=== PATIENT | female | born 1990 | race Caucasian/White ===

== ENCOUNTER 2023-07-27 10:00 | Outpatient (CLI) | payer BC, SELFPAY ==
--- NOTE | 2023-07-27 10:15 | CRLHL7_ITS ---
For Patients: As a result of the Cures Act, medical imaging exams and procedure reports are released immediately into your electronic medical record. You may view this report before your referring provider. If you have questions, please contact your health care provider. INDICATION: First trimester scan, establish dates. COMPARISON: None. TECHNIQUE: Real-time macias-scale imaging of the pelvis was performed. FINDINGS: Sonographic imaging demonstrates a single living intrauterine gestation. The embryo demonstrates a regular cardiac rate measuring 176 beats per minute. The embryo`s crown-rump length measurement of 2.3 cm corresponds to a gestational age of 9 weeks 3 days with a sonographic due date of 02/29/2024. There is a normal-appearing yolk sac. There are no gross abnormalities noted within the embryo at this early state of development. The gestational sac has a normal appearance. There is a 1.7 x 0.6 x 2.0 cm perigestational hemorrhage. The amount of fluid within the sac appears appropriate for gestational age. The cervix is closed. The myometrium appears normal. The ovaries are of normal size. Simple left ovarian cyst measuring 2.9 x 2.1 x 2.6 cm. There are no suspicious fluid collections noted in the cul-de-sac. IMPRESSION: Single living intrauterine with sonographic gestational age 9 weeks 3 days and sonographic due date 02/29/2024. 1.7 x 0.6 x 2.0 cm subchorionic hemorrhage. Dictated by Kaden Flores MD @ 07/27/2023 11:52:38 AM (Electronically Signed)
== END 2023-07-27 10:01 | disposition home or self-care (01) ==
LOC: US 10:04
PROVIDERS: PCP Advanced Practice Midwife; Visit Provider Advanced Practice Midwife
DX: Z34.91 Encounter for supervision of normal pregnancy, unspecified, first trimester (principal); O20.9 Hemorrhage in early pregnancy, unspecified; Z3A.09 9 weeks gestation of pregnancy
CPT/HCPCS: 76817; 86592; 86703; 86704; 86706; 86762; 86787; 86803; 86850; 86900; 86901; 87086; 87340

== ENCOUNTER 2023-08-14 13:51 | Outpatient (CLI) | payer BC, SELFPAY ==
--- NOTE | 2023-08-14 14:00 | US_ITS ---
Final Report Patient: ALDAIR FISHMAN Facility:?[facility] Patient ID:?[id number] Site Patient ID:?[id number]. Site :?1990 Study:?US OB Pelvis OB TV-08/14/2023 2:43:36 PM Ordering Physician:?ANGÉLICA SALINAS Final Report: INDICATION: Bleeding in early . COMPARISON: OB ultrasound 07/27/2023. TECHNIQUE: Real-time macias-scale imaging of the pelvis was performed. FINDINGS: Sonographic imaging demonstrates a single living intrauterine gestation. The embryo has a regular cardiac rate measuring 169 beats per minute. The embryo`s crown-rump length measures 5.0 cm which corresponds to a gestational age of 11 weeks 5 days with sonographic due date 02/28/2024. There is a developing placenta. No evidence of a perigestational hemorrhage. The left ovary measures 4.6 x 3.3 x 3.8 cm and contains a corpus luteal cyst. The right ovary was not visualized. No free fluid in the pelvic cul-de-sac. IMPRESSION: 1. Single living intrauterine gestation corresponding to a gestational age of 11 weeks 5 days with sonographic due date 02/28/2024. 2. Resolution of the previously seen subchorionic hemorrhage. Dictated by Oksana Silverman MD @ 08/15/2023 3:38:35 AM (Electronic Signature)
== END 2023-08-14 13:52 | disposition home or self-care (01) ==
LOC: US 13:52
PROVIDERS: Visit Provider Advanced Practice Midwife
DX: O20.9 Hemorrhage in early pregnancy, unspecified (principal); Z3A.11 11 weeks gestation of pregnancy
CPT/HCPCS: 76817

== ENCOUNTER 2023-09-12 10:26 | Outpatient (CLI) | payer BC, MEDICAID, SELFPAY | END 2023-09-12 10:27 | disposition home or self-care (01) | PROVIDERS: Visit Provider Advanced Practice Midwife | DX: R33.9 Retention of urine, unspecified (principal) | CPT/HCPCS: 87086 ==

== ENCOUNTER 2023-10-17 12:50 | Outpatient (CLI) | payer BC, MEDICAID, SELFPAY ==
--- NOTE | 2023-10-17 13:00 | US_ITS ---
Patient: ALDAIR FISHMAN Facility:?[facility] Patient ID:?[id number] Site Patient ID:?[id number]. Site :?1990 Study:?US-OB Pelvis anatomy-10/17/2023 2:20:45 PM Ordering Physician:Ashlie Burgos Final Report: INDICATION: Evaluate anatomy. COMPARISON: 08/14/2023 TECHNIQUE: Real time macias scale imaging of the fetus was performed as well as color Doppler analysis of the umbilical vessels. FINDINGS: Sonographic imaging demonstrates a single living intrauterine gestation. Fetus demonstrates a regular cardiac rate of 152 beats per minute. Fetus has a breech position. The placenta lies anteriorly without evidence of placenta previa. Placental edge 8.2 cm from the internal cervical os. Amniotic fluid volume appears normal. Single deepest vertical pocket: 4.5 cm. The cervix is closed and measures 3.8 cm in length. The composite ultrasound gestational age is calculated at 20 weeks 5 days with an estimated sonographic due date of 02/29/2024. The estimated weight is 383 grams which lies at the 62nd %. The following biometric measurements were obtained: Biparietal diameter: 4.7 cm/20 weeks 1 day 32nd% Head circumference: 17.7 cm/20 weeks 1 day 25th% Abdominal circumference: 16.1 cm/21 weeks 1 day 64th% Femur length: 3.4 cm/20 weeks 5 days 48th% The HC/AC ratio measures: 1.10 range (1.06-1.25) On anatomic survey, there is a normal appearance of the cerebral ventricles, cavum septi pellucidi, cisterna magna and cerebellum. The nose, lips, and facial profile appear normal. The cervical, thoracic and lumbar spine are well visualized and appear normal. There is a normal four-chamber heart view and the left and right ventricular outflow tracts appear normal. The diaphragm and stomach appear normal. The kidneys and bladder also appear normal. There is a normal three-vessel cord and cord insertion site. The four extremities appear normal. IMPRESSION: Normal OB ultrasound exam with concordance of clinical and sonographic dating. No intrinsic abnormalities noted on anatomic survey. Dictated by Kaden Flores MD @ 10/18/2023 8:54:18 AM Signed by:?Kaden Flores MD @10/18/2023 8:54:18 AM (Electronic Signature)
== END 2023-10-17 12:51 | disposition home or self-care (01) ==
LOC: US 12:53
PROVIDERS: Visit Provider Advanced Practice Midwife
DX: Z34.92 Encounter for supervision of normal pregnancy, unspecified, second trimester (principal); Z3A.20 20 weeks gestation of pregnancy
CPT/HCPCS: 76805

== ENCOUNTER 2023-12-05 09:25 | Outpatient (CLI) | payer BC, MEDICAID, SELFPAY | END 2023-12-05 09:26 | disposition home or self-care (01) | LOC: NFLDREF 12-09 15:38 | PROVIDERS: Visit Provider Registered Nurse | DX: Z34.92 Encounter for supervision of normal pregnancy, unspecified, second trimester (principal); Z3A.27 27 weeks gestation of pregnancy | CPT/HCPCS: 86592 ==

== ENCOUNTER 2024-02-06 09:36 | Outpatient (CLI) | payer BC, MEDICAID, SELFPAY | END 2024-02-06 09:37 | disposition home or self-care (01) | LOC: NFLDREF 02-08 10:33 | PROVIDERS: PCP Physician Assistant; Visit Provider Advanced Practice Midwife | DX: Z34.93 Encounter for supervision of normal pregnancy, unspecified, third trimester (principal); F41.9 Anxiety disorder, unspecified; F34.1 Dysthymic disorder; Z3A.36 36 weeks gestation of pregnancy | CPT/HCPCS: 87081; 87653 ==

== ENCOUNTER 2024-03-03 06:41 | Inpatient (IN) | payer BC, MEDICAID, SELFPAY ==
[2024-03-03] VITALS (30 sets, daily range): BP systolic 90–150; BP diastolic 48–92; PULSE 62–98; RESP 15–18; TEMP 36.8–37.1; O2SAT 89–99; BMI 32.8
[2024-03-03] MEDS: LACTATED RINGERS 1000 ML 1,000 ML IV (06:45)
[2024-03-03 06:56] LABS: Basophils Percent Auto 0.3 % (0.0-3.0); Eosinophils Percent Auto 0.6 % (0.0-7.0); Hematocrit 41.6 % (33.0-51.0); Hemoglobin* 14.3 gm/dL (12.0-16.0); Lymphocytes Percent Auto 20.8 % (20-44); Mean Corpuscular HGB Conc 34 gm/dL (32-36); Mean Corpuscular Hemoglobin 32 pg (26-34); Mean Corpuscular Volume 94 fL (80-100); Monocytes Percent Auto 6.2 % (0.0-11.0); Neutrophils Percent Auto 71.1 % (42.0-72.0); Platelet Count* 164 K/uL (140-440); RDW Coefficient of Variation % 12.2 % (11.5-15.5); Red Blood Count 4.41 m/uL (4.00-5.20); White Blood Count* 12.52 K/uL (4.50-11.00)
[2024-03-03 06:59] LABS: Slide Review Reflex No
[2024-03-03] MEDS: fentaNYL 100 MCG/2 ML inj 25 MCG INTRATHECA (07:05)
--- NOTE | 2024-03-03 07:13 | P.ANBPRC_ITS ---
[facility] Medical History Avulsion of umbilical cord ?P02.69 - affected by other conditions of umbilical cord (ICD-10) Vaginal delivery ?O80 - Encounter for full-term uncomplicated delivery (ICD-10) Spontaneous (2016) ?O03.9 - Complete or unspecified spontaneous without complication (ICD-10) Gestational hypertension without significant proteinuria, (2017) ?O13.5 - Gestational [-induced] hypertension without significant proteinuria, complicating the puerperium (ICD-10) Surgical History H/O wisdom tooth extraction ?K08.409 - Partial loss of teeth, unspecified cause, unspecified class (ICD- 10) Family History Brother Colitis Paternal Grandfather Colon cancer Maternal Grandfather Heart disease Social History Narrative: SOCIAL Education: masters - human services/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 Partner present, unable to assess current Special Diet: gluten free diet - glucose intolerance Ok with a blood transfusion: yes Culture or worship beliefs: denies RISK FACTORS Exercise Times/wk: beach body 3 times a week Depression/Anxiety: anxiety and depression. On sertraline, recently increase to 75mg at the end of May and feeling good on this dose. Denies concerns with current HARRIET of 10 and feels that it is normal concerns. HARRIET: 10 PHQ 9: 2 Seat Belt Use: Routinely Smoking: Denies past/present Alcohol/day: Denies while Caffeine: 1 per week Drug Use: Denies past/present Chicken Pox: Yes as a child MRSA: Denies What is your current living situation?: I presently have a place to live Problems where you live: no known problems In the past 12 months, utilities in danger of being shut off: no In past 12 months, lack of transportation kept you from medical appts, meetings, work, or getting things needed for daily living: no In the past 12 mos, have been you worried that your food would run out before you had money to buy more?: never true In the past 12 mos, the food you bought just didn't last and you didn't have money to buy more?: never true How often does anyone, including family, friends and others, physically hurt you : never How often does anyone, including family, friends and others, insult or talk down to you: never How often does anyone, including family, friends and others, threaten you with harm: never How often does anyone, including family, friends and others, scream or curse at you: never Little interest or pleasure in doing things: not at all Feeling down, depressed, or hopeless: several days Meds Home Medications and Allergies Home Medications ?Medication ?Instructions ?Recorded ?Confirmed ?Type vits no.126-ferrous fum tab PO DAILY 07/27/23 02/27/24 History 28 mg iron-folic acid 800 mcg tablet (Classic ) sertraline 50 mg tablet 75 mg PO QDAY 09/12/23 02/27/24 History aspirin 81 mg tablet,delayed 81 mg PO QDAY 10/17/23 02/27/24 History release (Adult Low Dose Aspirin) magnesium citrate 100 mg capsule 100 mg PO QDAY 02/06/24 02/27/24 History Allergies Allergy/AdvReac Type Severity Reaction Status Date / Time No Known Drug Allergies Allergy Verified 02/27/24 13:50 Results Labs Labs: Laboratory Results - last 24 hr 03/03/24 06:41 WBC 12.52 H RBC 4.41 Hgb 14.3 Hct 41.6 MCV 94 MCH 32 MCHC 34 RDW Coeff of Rafa 12.2 Plt Count 164 Neut % (Auto) 71.1 Lymph % (Auto) 20.8 Dukes % (Auto) 6.2 Eos % (Auto) 0.6 Baso % (Auto) 0.3 Neut # (Auto) 8.90 H Lymph # (Auto) 2.60 Dukes # (Auto) 0.80 Eos # (Auto) 0.10 Baso # (Auto) 0.00 Abs Immat Gran (auto) 0.10 Imm/Tot Granulo (auto) 1.0 Vital Signs Vital Signs: Last Vital Signs Pulse 94 03/03/24 07:13 BP 111/56 L 03/03/24 07:13 Pulse Ox 89 03/03/24 07:12 Anesthesia Procedures Intrathecal Patient Location: OB Start Time: 07:00 Stop Time: 07:05 Start Date: 03/03/24 Stop Date: 03/03/24 Reason for Block: procedure for pain Patient Position: sitting Performed By: Juvenal Skinner Preanesthetic Checklist: IV checked, risks and benefits discussed, monitors and equipment checked, pre-op evaluation, timeout performed and anesthesia consent Prep: chlorhexidine gluconate Monitoring: blood pressure monitoring, continuous pulse oximetry and heart rate Approach: midline Vertebral Space: lumbar (1-5) Needle Type: Pencan Injection Technique: single-shot Needle gauge: 25 Needle Length (cm): 10 cm
--- NOTE | 2024-03-03 07:19 | P.LDBA_ITS ---
Subjective History of Present Illness Date Seen: 03/03/24 Narrative: Oumou is being admitted to Labor and Delivery for active labor. She is a 33 year old at 40.2 weeks gestation. Her full history and physical was dictated by Brit Dunham CNM on 02/11/24. Please see this for details. She woke up with contractions around 0500 this am and they quickly increased in frequency and intensity. she presented to the unit around 0630 and was found to be 6- 7cm/80%/0 station per RN exam. She requested epidural analgesia after that. She denies any leaking fluids or bleeding but did feel that she lost my mucus plug right before leaving their house. She is appreciating good movement. When sitting up for analgesia she did note leaking of fluid that appeared clear from what was visible at that time. Specific Issues/Plans Partner: Kilo H&P completed 02/11/24 by Faraz VALLADARES 1. Hx gestation HTN after first delivery. Taking ASA 2. Anxiety and depression. On Sertraline 50mg and sees a therapist. 3. Hx cord evulsion and manual removal of placenta with 2nd delivery. 4. Vaginal bleeding with cramping at 11.3 weeks. US normal, previous ELIE resolved. COVID: 2 vaccines in 2020, not boosted Flu: declined TDAP: given 01/08/24 OB - Problem Based A/P Additional Plan (1) Pain during labor: Status: Acute (2) Anxiety: Status: Chronic (3) Depression: Status: Chronic Plan ASSESSMENT: ? 27 at 38.5 weeks gestation ? complicated by: history of gestational hypertension (blood pressures stable in this ), anxiety and depression (on sertraline), history of cord evulsion? Labor type: Spontaneous labor ? Reactive FHR tracing ? Labor complicated by: none ? GBS negative ? ? PLAN: ? 1. Routine intrapartum cares as ordered. Continue with expectant management ? 2. Monitoring continuous after intrathecal placement.? 3. Candidate for analgesia of choice. Requested analgesia placement at this time.? 4. Patient encouraged to reposition and ambulate with assistance to promote physiologic labor and . ? 5. Anticipate ??? Delivery/Labor/Induction Plan Plan: expectant management OB Result Labs Blood Type: O (+) positive GBS Status: negative OB Exam Physical Exam Vital signs: Pulse BP Pulse Ox 73 94/55 L 99 03/03/24 07:18 03/03/24 07:18 03/03/24 07:15 Narrative: Psychiatric:? Alert and oriented x3? HEENT:? Normocephalic, atraumatic? Neck:? Supple without adenopathy or thyromegaly? Lungs:? Clear to auscultation bilaterally? Heart:? Regular rate and rhythm, no murmur, rub or gallop? Abdomen:? Soft, nontender, and gravid? Extremities:? No edema or erythema? Detailed Labor and Delivery Exam Patient Gravid: Yes Dilation (cm): 7 Effacement (%): 80 Contraction intensity: Strong/Firm Fetus (Single) Station: 0 Amniotic Membrane Status: SROM Amniotic Membrane Fluid Description: Clear Heart Rate Baseline: 135 Monitor Accelerations: Present Monitor Decelerations: None Electrician Assistant Variability: Moderate (6-25)
[2024-03-03] MEDS: OXYTOCIN 30 unit/500 ML in NS 30 UNIT/500 ML BAG 300 UNIT IVPB (07:24)
--- NOTE | 2024-03-03 07:41 | W.PM.OBVAGDE ---
OB Procedure Vag Delivery Mother Details Mother Details: The patient is a 33 year-old, 4, now Para 3, admitted on 03/03/24 at 40w 2 Days gestation. Admission Date: 03/03/24 Additional Details Amniotic Membrane Status: SROM (then 2nd SROM of forebag with mec stained fluid) Amniotic Membrane Rupture Date: 03/03/24 Amniotic Membrane Rupture Time: 07:16 Amniotic Membrane Fluid Description: Meconium Stained (moderate, no particulate) Analgesia/Anesthesia Type: Spinal Waterbirth: No Intrapartal Events: Precipitous Labor <3 Hrs Labor Onset: 05:00 Complete: 07:16 Pushin:16 Heart: heart tones during second stage were category 2, with prolonged decel audible with imminent . Tj hastened with encouragement for Oumou to push him out. Delivery Details Delivery Date: 03/03/24 Delivery Time: 07:22 Route of delivery: Infant Gender: Male Infant Viability: Alive; Heart Rate Present Position at Delivery: OA Delivery Details: Patient was admitted for active labor at 7 cm and progressed normally/with quickly. We were able to get the spinal in just prior to . AROM noted at 0716 with moderate mec fluid. Peds called to . Patient was complete at 0716 and pushing at 0716. of a viable male at 0722 in right tilt semifowler's. Vertex delivered OA. One loose nuchal cord reduced. Shoulders delivered easily. Body delivered easily and without incident. I supported the head, reduced the cord then assisted Kilo in the of his son. passed to mothers abdomen with an intermittent cry, but excellent tone. Cord was clamped and cut at approx 5 minutes with signs of placental seperation. APGARS were 8 at one minute and 9 at five minutes respectively. Mouth was bulb suctioned. Intact placenta with a 3 vessel cord delivered spontaneously at 0728. Fundus firm. 1st degree identified only right inside the introitus, which was hemostatic and not repaired. QBL 150 cc. Mother and baby stable; mother plans to breastfeed. Infant weight pending.? 1 Minute Interval Total Score: 8 5 Minute Interval Total Score: 9 Additional Details Shoulder Dystocia: No Placenta Delivery Time: 07:28 Placental Delivery Description: Spontaneous Procedure Done: Global Blood Loss: 150 Laceration: Perineal - 1st Degree Blood Loss Measurement Type: QBL Bakri Used: No Sponge/Need Count Correct: Yes Cord Vessel Description: 3 Vessels, Loose and Reduced Event Summary Status: Mother and were stable after delivery. Disposition: floor
[2024-03-03] MEDS: IBUPROFEN 600 MG TABLET PO ×3 (09:10→21:07)
[2024-03-03] MEDS: ONDANSETRON 2 MG/ML inj 4 MG IV (10:21)
[2024-03-03] MEDS: LACTATED RINGERS 1000 ML 500 ML IV (10:59)
[2024-03-03] MEDS: LANOLIN CREAM 1 APPLIC TOPICAL (14:55)
[2024-03-03] MEDS: ONDANSETRON 2 MG/ML inj 4 MG IVP (16:34)
[2024-03-03 16:46] LABS: Basophils Percent Auto 0.3 % (0.0-3.0); Eosinophils Percent Auto 0.1 % (0.0-7.0); Hematocrit 37.5 % (33.0-51.0); Immature Granulocytes Pct Auto 0.5 %; Lymphocytes Percent Auto 10.9 % (20-44); Mean Corpuscular HGB Conc 35 gm/dL (32-36); Mean Corpuscular Hemoglobin 33 pg (26-34); Mean Corpuscular Volume 95 fL (80-100); Monocytes Percent Auto 5.5 % (0.0-11.0); Neutrophils Percent Auto 82.7 % (42.0-72.0); Platelet Count* 157 K/uL (140-440); RDW Coefficient of Variation % 12.1 % (11.5-15.5); Red Blood Count 3.96 m/uL (4.00-5.20); Slide Review Reflex No; White Blood Count* 14.53 K/uL (4.50-11.00)
[2024-03-03 17:51] LABS: Chloride* 105 mmol/L (96-114)
[2024-03-03 17:52] LABS: Albumin* 3.3 g/dL (3.3-5.0); Potassium* 3.8 mmol/L (3.6-5.1); Sodium* 134 mmol/L (135-149)
[2024-03-03 17:55] LABS: Alanine Aminotransferase* 19 U/L (4-35); Alkaline Phosphatase* 154 U/L (40-150); Anion Gap 3 mEq/L (7-15); Aspartate Amino Transferase* 39 U/L (12-35); Bilirubin Total* 0.5 mg/dL (0.1-1.5); Blood Urea Nitrogen* 6 mg/dL (5-24); Calcium* 8.7 mg/dL (8.4-10.6); Carbon Dioxide* 26 mmol/L (20-32); Creatinine* 0.6 mg/dL (0.5-1.5); Est. Creatinine Clearance* 115.16; Estimated Glomerular Filt Rate 121 ml/min; Glucose* 102 mg/dL (60-115)
[2024-03-03] MEDS: hydrOXYzine pamoate 25 MG CAPSULE 100 MG PO (22:47)
--- NOTE | 2024-03-03 23:03 | P.OBPN_ITS ---
OB - PN:Subj Subjective Date Seen: 03/03/24 Narrative: Oumou has had 2 bouts of vomiting today that were treated with zofran with relief. CBC, CMP and electrolyte panel checked with no concerning findings. Pt does have significant anxiety and feels this is the cause for her. Reassurance given by nursing. Bleeding is unremarkable. She has no fever or significant pain. She is supported by her partner. OB - PN: Obj Exam Physical Exam: Vital signs: Temp Pulse Resp BP Pulse Ox O2 Del Method 98.7 F 62 18 150/92 H 97 Room Air 03/03/24 20:50 03/03/24 20:50 03/03/24 20:50 03/03/24 20:50 03/03/24 20:50 03/03/24 20:50 Narrative: Reflexes =2/4 and neg clonus by bilateral lower extremities. One elevated BP noted. Labs WNL OB - PN: Obj Data Labs Labs: Laboratory Results - last 24 hr 03/03/24 03/03/24 06:41 16:39 WBC 12.52 H 14.53 H RBC 4.41 3.96 L Hgb 14.3 13.0 Hct 41.6 37.5 MCV 94 95 MCH 32 33 MCHC 34 35 RDW Coeff of Rafa 12.2 12.1 Plt Count 164 157 Neut % (Auto) 71.1 82.7 H Lymph % (Auto) 20.8 10.9 L [facility] % (Auto) 6.2 5.5 Eos % (Auto) 0.6 0.1 Baso % (Auto) 0.3 0.3 Neut # (Auto) 8.90 H 12.00 H Lymph # (Auto) 2.60 1.60 [facility] # (Auto) 0.80 0.80 Eos # (Auto) 0.10 0.00 Baso # (Auto) 0.00 0.00 Abs Immat Gran (auto) 0.10 0.10 Imm/Tot Granulo (auto) 1.0 0.5 Sodium 134 L Potassium 3.8 Chloride 105 Carbon Dioxide 26 Anion Gap 3 L BUN 6 Creatinine 0.6 Estimated Creat Clear 115.16 Estimated GFR 121 Glucose 102 Calcium 8.7 Total Bilirubin 0.5 AST 39 H ALT 19 Alkaline Phosphatase 154 H Total Protein 6.0 Albumin 3.3 Blood Type O Positive Antibody Screen NEGATIVE OB - PN: A/P Delivery Assessment and Plan (1) Anxiety: Status: Chronic (2) care and examination of lactating mother: Status: Acute Plan day: 0 Plan: routine care Comments: Routine PP care Anxiety-offered vistaril to help calm her anxiety and help with sleep. She agrees with plan.
[2024-03-04 00:28] VITALS: BP 121/77; PULSE 78; RESP 16; TEMP 36.7; O2SAT 97
[2024-03-04 02:57] VITALS: BP 124/79; PULSE 76; RESP 16; TEMP 37.2; O2SAT 97
[2024-03-04] MEDS: IBUPROFEN 600 MG TABLET PO ×2 (03:03→09:14)
[2024-03-04 06:24] LABS: Hemoglobin* 12.5 gm/dL (12.0-16.0)
--- NOTE | 2024-03-04 08:04 | PM.ANPOST ---
Post Anesthesia Note Post Anesthesia Note Patient seen: Inpatient Respiratory Status: adequate Cardiovascular Status: adequate Mental Status: baseline Pain: adequate Temp: baseline Anesthetic awareness: N/A Complications: none Follow care: none
--- NOTE | 2024-03-04 08:08 | PM.OBDSVD1 ---
DS: Providers Provider Date Seen: 03/04/24 Date of admission: 03/03/24 06:41 Primary care physician: ANH White Admitting Clinician: Shanti Jiménez CNM Attending Physician on discharge: Shanti Jiménez CNM Date of Discharge: 03/04/24 Exam Narrative: Exam Narrative: GENERAL APPEARANCE:? normal affect, alert, no distress? MOOD:? appropriate? CHEST:? clear to auscultation and percussion? HEART:? regular rate and rhythm? ABDOMEN:? soft, non-tender the uterine fundus is [] and is appropriate for the stage of recovery. Incision [].? PERINEUM:? mild edema of the perineum, there is a [] that is healing well.? EXTREMITIES:? normal and no edema? Const: Vital Signs, click to edit/add: Vital Signs - 24 hr 03/03/24 08:15 03/03/24 08:22 03/03/24 08:22 Temperature 98.5 F Pulse Rate 71 74 Pulse Rate [Pulse Oximeter] Respiratory Rate 16 Blood Pressure 149/60 H 131/60 Blood Pressure [Le ft Arm] Blood Pressure [Ri ght Arm] Pulse Oximetry Oxygen Delivery Me thod 03/03/24 08:29 03/03/24 08:44 03/03/24 09:00 Temperature Pulse Rate 64 69 72 Pulse Rate [Pulse Oximeter] Respiratory Rate Blood Pressure 112/56 L 133/65 132/59 L Blood Pressure [Le ft Arm] Blood Pressure [Ri ght Arm] Pulse Oximetry Oxygen Delivery Me thod 03/03/24 09:00 03/03/24 09:14 03/03/24 09:29 Temperature Pulse Rate 73 67 Pulse Rate [Pulse Oximeter] Respiratory Rate 16 Blood Pressure 124/57 L 115/60 Blood Pressure [Le ft Arm] Blood Pressure [Ri ght Arm] Pulse Oximetry Oxygen Delivery Me thod 03/03/24 09:30 03/03/24 10:03 03/03/24 10:34 Temperature 98.2 F Pulse Rate 91 Pulse Rate [Pulse Oximeter] Respiratory Rate 15 15 Blood Pressure 124/69 Blood Pressure [Le ft Arm] 142/85 H Blood Pressure [Ri ght Arm] Pulse Oximetry 98 Oxygen Delivery Me thod Room Air 03/03/24 10:39 03/03/24 12:24 03/03/24 16:30 Temperature 98.4 F 98.6 F Pulse Rate Pulse Rate [Pulse Oximeter] 76 72 72 Respiratory Rate 15 16 Blood Pressure Blood Pressure [Le ft Arm] 134/80 124/76 Blood Pressure [Ri ght Arm] 136/80 Pulse Oximetry 99 95 98 Oxygen Delivery Me thod Room Air Room Air Room Air 03/03/24 20:50 03/04/24 00:28 03/04/24 02:57 Temperature 98.7 F 98.1 F 98.9 F Pulse Rate Pulse Rate [Pulse Oximeter] 62 78 76 Respiratory Rate 18 16 16 Blood Pressure Blood Pressure [Le ft Arm] 124/79 Blood Pressure [Ri ght Arm] 150/92 H 121/77 Pulse Oximetry 97 97 97 Oxygen Delivery Me thod Room Air Room Air Room Air OB - DS: Summary Hospital Course Hospital Course: Oumou is a 33 year old G 4 P 3 at 40.2 weeks gestation that was admitted to the Center on 03/03/24 for active labor. She had an uncomplicated vaginal delivery. She delivered a viable male . She is breast feeding and feels that baby is feeding well but latch is getting shallow. Encouraged her to see before discharge. the patient has done well. Her pain is well controlled with current medications.? She has no new complaints.? Urinary output is adequate and she is voiding without difficulty.? Has a good appetite, is tolerating a general diet, is passing flatus, and has had a bowel movement.? Has small amount of rubra lochia.? She is ambulating well. She is planning condoms or a diaphragm for contraception until her partner gets a vasectomy. She had a couple of bouts of vomiting overnight that she feels was due to anxiety. She denies nausea since that time. She is requesting a Zofran prescription for if it occurs again until she can be evaluated. Encouraged her to seek care with concerns for anxiety or depression. Will plan for a 1 week mood check in addition to the 2 week PP check due to a significant history and concerns from her and her partner. Peripartum Data Infant delivery method: Vaginal Laceration description: Perineal - 1st Degree Episiotomy description: None complications: none Infant Gender: Male Discharge Plan: Home Status at Discharge Functional status at discharge: independent ambulation Overall status at discharge: patient is progressing back to baseline Time Spent with Patient Time attestation: Total time spent providing and/or coordinating discharge services: Discharge Plan Discharge Disposition: Home, Self-Care Date of Admission: 03/03/24 06:41 Attending Provider on Discharge: Shanti Jiménez Primary Care Provider: Celi Cole Condition: Stable Anticipated Discharge Date/Time: 03/04/24 15:00 Discharge Medications: New docusate sodium 100 mg Capsule 100 mg PO DAILY Qty: 100 0RF Rx Instructions: Take 1-2 tablets daily as needed for constipation. ibuprofen 600 mg Tablet 600 mg PO Q6H PRNQty: 60 0RF ondansetron HCl 4 mg tablet 4 mg PO Q8H PRN (Reason: nausea and vomiting) Qty: 7 0RF Continued Classic 28 mg iron- 800 mcg tablet 2 tab PO DAILY sertraline 50 mg tablet 75 mg PO QDAY magnesium citrate 100 mg capsule 100 mg PO QDAY Discharge Orders: Discharge Order (Routine); Ordered 03/04/24 Ordered By: Shanti Jiménez Patient Education: OB Vaginal/Breast Feeding Additional Instructions: Discharge instructions were reviewed with the patient including signs and symptoms of infection and home going medications.? Lifting Restrictions: 20 pounds for 6? weeks? ?? Do not drive while taking narcotic pain meds.? Off Work or School for 6 weeks.? ?? Symptoms to report to doctor:? -Bleeding that saturates more than one pad per hour? -Passing clots larger than the size of a golf ball? -Pain not relieved by prescribed medication? -Fever above 100.4 degrees Fahrenheit? -A foul vaginal odor? -Difficulty in emotions, mood and functions? -Thoughts of hurting yourself and/or ? -Painful, reddened area in your breast? -Any drainage, redness or tenderness in your IV/epidural site? -Severe headache that doesn't improve after taking medications? -Changes in vision, including temporary loss of vision, blurred vision, and/or light sensitivity? -Upper abdominal pain (usually under ribs on the right side)? -Decrease in urination or painful, frequent urinating? -Chest pain? -Shortness of breath? -Tenderness or pain with redness and/swelling in the calf(s) of your leg? ?? Follow Up: 1. 1 week visit:?mood/anxiety check in.? 2. 2-week visit: discuss infant feeding/care concerns, review control options and screen for anxiety/depression.? 3. 6-week visit for an annual exam.? consultation services are available to all mothers and babies for the first year after delivery.? To make an appointment, please call [phone].? Activity Level: Activity as Tolerated Discharge Diet: Regular Follow Up Appointments: [facility] [Provider Group] Forms: MyHealth Info Instructions
[2024-03-04 09:11] VITALS: BP 110/71; PULSE 84; RESP 16; TEMP 36.7; O2SAT 97
[2024-03-04] MEDS: DOCUSATE SODIUM 100 MG CAPSULE PO (09:14)
[2024-03-04] MEDS: SERTRALINE 50 MG TABLET 75 MG PO (09:45)
[2024-03-05 03:28] LABS: Rapid Plasma Reagin (RPR) Non Reactive (Non Reactive)
== END 2024-03-04 15:01 | disposition home or self-care (01) | DRG 560 ==
LOC: OB OUT 06:42 → OB 06:42
PROVIDERS: Midwife; Admitting Provider Advanced Practice Midwife; PCP Physician Assistant; Visit Provider Advanced Practice Midwife
DX: O70.0 First degree perineal laceration during delivery (principal); O99.344 Other mental disorders complicating childbirth; F41.9 Anxiety disorder, unspecified; F32.A Depression, unspecified; O77.0 Labor and delivery complicated by meconium in amniotic fluid; Z3A.40 40 weeks gestation of pregnancy; Z37.0 Single live birth; R11.10 Vomiting, unspecified
CPT/HCPCS: 01967; 36415; 80051; 80053; 85018; 85025; 86592; 86850; 86900; 86901; A9270; J2371; J2405; J3010; J7120

== ENCOUNTER 2024-04-15 13:02 | Outpatient (CLI) | payer MEDICAID, SELFPAY ==
--- NOTE | 2024-04-15 16:04 | W.PM.LAC.MC ---
Consult Note - Mom Date of Visit Date of visit: 04/15/24 Reason for consultation: Assistance Needed and Breast/Nipple Issue (latch concern, some fussiness noted) Visit Code: Visit Patient's Information Phone number: [phone] Para: 3 Allergies No Known Drug Allergies Allergy (Verified 03/12/24 09:23) Mother's Medical History: Medical History (Updated 03/06/24 @ 00:01 by Background Daemon) Avulsion of umbilical cord ?P02.69 - [place] affected by other conditions of umbilical cord (ICD-10) Vaginal delivery ?O80 - Encounter for full-term uncomplicated delivery (ICD-10) Spontaneous (2015) ?O03.9 - Complete or unspecified spontaneous without complication (ICD-10) Gestational hypertension without significant proteinuria, (2016) ?O13.5 - Gestational [-induced] hypertension without significant proteinuria, complicating the puerperium (ICD-10) Delivery Information Gestational Age: 40 weeks Gestational Weight For Age: AGA Weight: 3.385 kg Discharge Weight: 3.22 kg Baby's Information Baby's Age at Visit: 6 weeks Baby's Provider [facility] Clinic: [facility] Jaundice: No Past Experience Past Experience: Yes Current Frequency of Day Feedings: every 2-2.5 hours Frequency of Night Feedings: every 2-3 hours Both Breasts: No (one side/feeding; offers 2nd usually declines) Suck: strong Latch: clicky per mom Length of Time: 15 min on one side Goals: 1 year or more Pumping Pumping: Yes Quantity Pumped: 4 oz/side Supplementing EBM Supplement: No Formula Supplement: No Baby Elimination Number of Wet Diapers a Day: ea feeding Number of BM a Day: 1-2/day Breast/Nipple Condition Breast Information: Breasts are symmetrical with rounded lower quadrants, intramammary distance is less than 1.5 inches. No erythema. Nipples are supple, everted prior to feeding. Breast Shape: Round Engorgement: No Maternal Nipple Condition - Left: Common Nipple Maternal Nipple Condition - Right: Common Nipple Sore Nipples: Yes (right can be sore after nursing as baby is one and off alot) Baby Assessment Skin: Normal Tongue/frenulum: Normal/elastic Palate: Average Lips: Relaxed and Symmetrical Jaw Alignment: Symmetrical Mucosa: [place], moist Onsite Observation Pre-Feed weight: 4.762 kg Post-Feed weight: 4.838 kg Milk Transferred (mL): 76 Position: Cross cradle Attachment/latch-on achieved: With difficulty (babe on and off a lot at first) Suck pattern: Suck burst and normal rest Swallow: Gulping Behavior following feed: Alert, content Pre-Nursing Left Nipple: Within Normal Limits Pre-Nursing Right Nipple: Within Normal Limits Post-Nursing Left Nipple: Within Normal Limits Post-Nursing Right Nipple: Within Normal Limits Assessments/Interventions Assessments/Interventions: Mom latched kaitlynn to her left breast initially, then switched to her right breast. Kaitlynn latches easily to the breast, but does not have a wide, deep latch. He tucks his bottom lip in and is not on deep enough so top lip flips in and out with feeding. Worked with mom for asymmetric latch technique to try and get a deeper latch; she is able but kaitlynn pulls back. Discussed she is going to need to reteach him the right way to latch. Described this as going back to him being a and starting over so to speak - get comfortable, baby in good alignment with ear shoulder hip in straight line, then bring baby to breast. Breast in a breast sandwich so baby has to come on with bottom lip/jaw wide and bring baby over top to get top lip up and out. Education provided: Early feeding cues to maximize timing of latching, Asymmetric latch technique for wide/deep latch to increase milk and Transfer for baby and increase comfort for mom Handouts Provided: QR code for Asymmetric latch to view and practice at home in own surrounding. Feeding Plan: Discussed he is transferring a reasonable amount of milk; as mom describes him as spitty, discussed some babies more spitty than others. He has gained 9 oz in 11 days so his weight gain is appropriate. Mom says he clicks on the bottle as well, using [employer] Ros[employer]. Discussed other bottle options to see if that changes the clickiness. Also discussed tug of war exercises before diaper changes to see if this strengthens his suck and makes his bottle feedings more efficient. Follow-Up Suggested follow up: Appointment in 1 week (telephone follow up) Time Spent Time spent with patient (min): 70 (Reviewing EMR and face to face time with patient and baby.) Meds Home Medications and Allergies Home Medications ?Medication ?Instructions ?Recorded ?Confirmed ?Type vits no.[id number]-ferrous fum 2 tab PO DAILY 07/27/23 03/12/24 History 28 mg iron-folic acid 800 mcg tablet (Classic ) sertraline 50 mg tablet 75 mg PO QDAY 09/12/23 03/12/24 History magnesium citrate 100 mg capsule 100 mg PO QDAY 02/06/24 03/12/24 History Allergies Allergy/AdvReac Type Severity Reaction Status Date / Time No Known Drug Allergies Allergy Verified 03/12/24 09:23
== END 2024-04-15 13:03 | disposition home or self-care (01) ==
LOC: OB LAC 13:03
PROVIDERS: PCP Physician Assistant; Visit Provider Obstetrics & Gynecology
DX: Z39.1 Encounter for care and examination of lactating mother (principal)
CPT/HCPCS: G0463